=== PATIENT | male | born 2000 | race Caucasian/White ===

== ENCOUNTER 2020-03-18 22:49 | Emergency (ER) | payer OTHER, SELFPAY ==
[2020-03-18 23:00] VITALS: BP 111/77; PULSE 94; RESP 18; TEMP 38.2; O2SAT 100
--- NOTE | 2020-03-18 23:07 | ED.DENTAL ---
HPI - Dental/Oral General Chief complaint: Dental/Oral Stated complaint: fever, tooth pain Source: patient Limitations: no limitations History of Present Illness HPI Narrative: This is a 19-year-old male patient with a dental pain the left lower molar and wisdom tooth with a surrounding gum inflammation with some fever of 100.7, and left submandibular gland swelling and jaw swelling. Currently there is no nausea vomiting no shortness of breath no abdominal pain. MD Complaint: tooth pain Teeth map: 1. Onset (ago): day(s) Duration: constant Severity: moderate Severity scale (1-10): 8 Relieving factors: nothing Exacerbating factors: chewing and cold Context: history of dental caries Associated symptoms: fever and gum swelling Treatment prior to arrival: none Related Data Home Medications Medication Instructions Recorded Confirmed escitalopram oxalate 20 mg PO DAILY 03/18/20 03/18/20 Allergies Allergy/AdvReac Type Severity Reaction Status Date / Time NONE Allergy Unknown Uncoded 05/16/03 12:39 Review of Systems Review of Systems: All systems reviewed & are unremarkable except as noted in HPI and below [facility] Past Medical History Medical History Patient denies medical problems Exam Const: General: no acute distress and alert Orientation/consciousness: patient oriented x3 HENMT: Head: normal to inspection Other: Left lower molar and wisdom tooth dental pain with surrounding gum inflammation and submandibular gland swelling and tenderness with palpation Eyes: Conjunctivae: conjunctivae normal Pupils: Equal, round and reactive pupils present Neck: Neck: normal visual inspection and lymphadenopathy Chest: Chest palpation & inspection: normal inspection of the chest Resp: Effort & Inspection: normal respiratory effort Auscultation: clear to auscultation bilaterally Cardio: Rate: regular rate Rhythm: regular rhythm GI: Auscultation: normal bowel sounds : Testes: Testes normal Back/Spine/Pelvis: Back: no CVA tenderness Skin: General skin exam: normal color Rashes: no rashes Neuro: General: patient oriented x3, moves all extremities, no meningeal signs and no focal motor deficits Extrem: General: normal to inspection Psych: Mental Status: mental status grossly normal Critical Care Time Critical Care Time Critical Care Time: No Discharge Plan Discharge Clinical Impression: Dental abscess, Toothache Patient Disposition: Home, Self-Care Condition: Stable Instructions: Antibiotic Form, Dental Abscess (ED), Toothache (ED) Additional Instructions: take medicine as prescribed and follow-up with dentist as soon as possible for further evaluation and treatment. Prescriptions: New amoxicillin 500 mg capsule 500 mg PO TID Qty: 30 RF: 0 tramadol [Ultram] 50 mg tablet 50 mg PO Q6H PRN (Reason: pain) Qty: 14 RF: 0 No Action escitalopram oxalate 20 mg tablet 20 mg PO DAILY RF: 0 Follow-up/Referrals: Evan Zamudio MD [Primary Care Provider] - Stand Alone Forms: Work/School Release IP Time of Disposition: 23:12
[2020-03-18] MEDS: AMOXICILLIN 500 MG CAPSULE PO (23:10)
[2020-03-18] MEDS: ACETAMINOPHEN 500 MG TABLET 1000 MG PO (23:11)
[2020-03-18 23:25] VITALS: BP 110/75; PULSE 85; RESP 20; TEMP 38.1; O2SAT 99
[2020-03-18 23:27] VITALS: TEMP 38.1
== END 2020-03-18 23:32 | disposition home or self-care (01) ==
PROVIDERS: Emergency Provider Emergency Medicine; PCP Internal Medicine
DX: K04.7 Periapical abscess without sinus (principal); K08.89 Other specified disorders of teeth and supporting structures
CPT/HCPCS: 99283; A9270

== ENCOUNTER 2022-11-27 07:44 | Outpatient (CLI) | payer OTHER, SELFPAY ==
--- NOTE | ~2022-11-27 | CT_ITS ---
EXAMINATION: CT abdomen pelvis w con DATE: 11/27/2022 08:26 INDICATION: Chronic intermittent diarrhea, worse over the past 6 months, with some blood in the stool TECHNIQUE: Computed tomography (CT) of the abdomen and pelvis was performed with 100 CC Omnipaque 350 intravenous contrast. Automated exposure control and iterative reconstruction technique were employe d. Exam dose: 602.25 mGy-cm total exam DLP. COMPARISON: None. FINDINGS: The lung bases are clear. Normal heart size. No pericardial or pleural effusion. The liver, gallbladder, bile ducts, pancreas, pancreatic duct, spleen, and adrenal glands and kidneys are normal. Normal caliber of the abdominal aorta. No intraperitoneal or retroperitoneal or pelvic m ass lesion or adenopathy or ascites. The urinary bladder, prostate gland and seminal vesicles are unremarkable. Normal appendix. There is a moderately prominent amount of fecal material in the colon and rectum. No bowel obstruction, bowel wall thickening, pneumatosis or intraperitoneal free air. Small fat-containing umbilical hernia. Included skeletal structures are unremarkable. IMPRESSION: No significant abnormality Reviewed, dictated and finalized at [facility]. Reviewed, dictated and finalized at [facility]. 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
== END 2022-11-27 07:45 | disposition home or self-care (01) ==
LOC: CHSIMG 07:47
PROVIDERS: PCP Internal Medicine; Visit Provider Internal Medicine
DX: K62.5 Hemorrhage of anus and rectum (principal)
CPT/HCPCS: 74177; Q9967

== ENCOUNTER 2023-06-24 13:53 | Outpatient (CLI) | payer OTHER, SELFPAY ==
--- NOTE | ~2023-06-24 | XR_ITS ---
EXAM: XR knee RT 3V DATE: 06/24/2023 14:19 HISTORY: right lateral knee pain over fibular head/NO TRAUMA . COMPARISON: 01/31/2007. FINDINGS: Normal mineralization. No fracture or dislocation. No lytic or blastic lesion. Mild medial compartment osteoarthritis. No erosion or periosteal change. Soft tissues within normal limits. IMPRESSION: No acute osseous finding in the right knee. Reviewed, dictated and finalized at [facility].
== END 2023-06-24 13:54 | disposition home or self-care (01) ==
LOC: CHSIMG 13:55
PROVIDERS: PCP Internal Medicine; Visit Provider Internal Medicine
DX: M25.561 Pain in right knee (principal)
CPT/HCPCS: 73562